=== PATIENT | female | born 2000 | race Caucasian/White ===

== ENCOUNTER 2022-04-25 13:00 | Inpatient (IN) | payer MEDICAID ==
[2022-04-25] MEDS ORDERED: fentaNYL 100 MCG/2 ML SDV IV ONE (18:45)
[2022-04-25] MEDS ORDERED: Bupivacaine/fentaNYL/NS 100 ML Bag EPIDUR ONE (18:45)
[2022-04-25] MEDS ORDERED: Lactated Ringers 1,000 ML IV ONE (22:55)
[2022-04-25] MEDS ORDERED: Methylergonovine 0.2 MG/1 ML Amp IM ONE (22:55)
[2022-04-26] MEDS ORDERED: Ibuprofen 600 MG Tab PO ONE (00:40)
[2022-04-27] MEDS ORDERED: Bupivacaine 0.25% 10 ML SDV EPIDUR ONE (10:59)
== END 2022-04-27 11:00 | disposition home or self-care (01) | DRG 806 ==
LOC: JD.OBCHECK 13:00 → JD.ZCENSUS 13:08 → OBSVTOIN 22:50
PROVIDERS: ADMIT Obstetrics & Gynecology; ATTEND Obstetrics & Gynecology
PROC: 10E0XZZ Delivery of Products of Conception, External Approach (ICD-10-PCS; principal; 2022-04-25)
PROC: 3E0R3BZ Introduction of Anesthetic Agent into Spinal Canal, Percutaneous Approach (ICD-10-PCS; 2022-04-25)
PROC: 00HU33Z Insertion of Infusion Device into Spinal Canal, Percutaneous Approach (ICD-10-PCS; 2022-04-25)
DX: O99.52 Diseases of the respiratory system complicating childbirth (principal); Z3A.39 39 weeks gestation of pregnancy; Z37.0 Single live birth; O98.32 Other infections with a predominantly sexual mode of transmission complicating childbirth; O99.344 Other mental disorders complicating childbirth; F32.A Depression, unspecified; J45.909 Unspecified asthma, uncomplicated
CPT/HCPCS: 01967; 36415; 51702; 59025; 59409; 85027; 86592; 86850; 86900; 86901; A9270-GY; J2210; J3010; J3490; J7120